=== PATIENT | female | born 1960 | race Caucasian/White ===

== ENCOUNTER 2017-01-23 12:30 | Emergency (ER) | payer BC ==
[2017-01-23 12:37] VITALS: BP 153/76; BMI 42.9
--- NOTE | 2017-01-24 10:32 | DR.DIARMA ---
HPI - PCP Primary Care Physician: TRU - Complaint Chief Complaint:: DIARRHEA FOR 4 DAYS,RASH ON ABDOMEN AND BACK Self Treatment fo Chief Complaint: CALAMINE LOTION, ANTIFUNGIAL CREAM, IMODIUM - Source History Provided: Patient - Mode of Arrival Mode of Arrival: Ambulatory - Timing Onset of Chief Complaint: 01/19/17 PMH - PMH Past Medical History: Yes Past Medical History: Asthma, Depression Past Surgical History: Yes Surgical History: Hysterectomy, Other Past Surgical History Comment: LIPOSUCTION - Family History History of Family Medical Conditions: Yes (UNKNOWN) Family Medical History Comment: FOSTER CHILD - Social History Does any household member use tobacco: No Alcohol Use: None Do you use any recreational Drugs:: No Lives With: Spouse Lives Where: Home - infectious screening In the last 2 months have you had wt loss of >10#?: NO Have you had fever, night sweats or hemotysis?: No Have you traveled outside the country in the last 6 months?: No Isolation: Standard PE - Vital Signs Vitals: Temperature 97.7 F Pulse Rate 75 Respiratory Rate 20 Blood Pressure 153/76 O2 Sat by Pulse Oximetry 98 - Discharge Plan Disposition: LWBS After Triage Condition: Stable - Follow ups/Referrals Follow ups/Referrals: ANNABEL OTT [Primary Care Provider] - 3 days - Instructions
== END 2017-01-23 14:20 | disposition left against medical advice (07) ==
LOC: ER 12:44
DX: R19.7 Diarrhea, unspecified (principal)
CPT/HCPCS: 99281; 99282

== ENCOUNTER 2021-01-04 13:07 | Observation (INO) ==
[2021-01-04 13:18] VITALS: BMI 36.8
--- NOTE | 2021-01-04 13:41 | DR.SOBA ---
HPI Time Seen Time Seen by Provider: 01/04/21 13:26 Primary Care Physician Primary Care Physician: FE SALAS Complaints Chief Complaint Doctors Comments: 60 y/o female presents for evaluation. Diagnosed with Covid about 3-4 weeks ago. Has had steadily worsening symptoms x 2 weeks. + dry cough, + dyspnea, worse with exertion. + h/o asthma/COPD. Was treated with azithromycin, albuterol inhaler/nebulizer. Denies any fever, though feels hot at times. Having chest pain, sternal region, sharp pain. Radiated to the back/abdomen at times. Pain worse with inspiration. Nothing makes it better. C/o weakness, aches, dyspnea which is worse on exertion. Was at another ER 2 days ago, d/c'd without any additional meds. Did not receive vaccines, + smokes. Chief Complaint:: PT. STATES SHE HAD COVID ABOUT 1 MONTH AGO. PT. HAS HAD SHORTNESS OF BREATH SINCE HAVING COVID BUT IT HAS WORSENED. PT. IS WINDED WHILE TALKING TO STAFF. PT. STATES SHE ACHES ALL OVER. NON PRODUCTIVE COUGH NOTED. PT. WAS SEEN IN [facility] ER 2 DAYS AGO FOR SOB. COVID-19 Coronavirus risk:travel/contact w/high risk person: No Has patient experienced Coronavirus symptoms: Yes Coronavirus symptoms experienced: Coughing and Shortness of Breath Source History Provided: Patient Mode of Arrival Mode of Arrival: Ambulatory Timing Onset of Chief Complaint: 12/05/20 PMH PMH Past Medical History: Yes Past Medical History: Asthma and Depression Past Surgical History: Yes Surgical History: Hysterectomy and Other Family History History of Family Medical Conditions: No Social History Does patient currently use any type of tobacco product: Yes Have you used tobacco products in the last 12 months: Yes Type of Tobacco Use: Cigarettes Does any household member use tobacco: Yes Alcohol Use: None Do you use any recreational Drugs:: No Lives With: Family Lives Where: Home Travel Risk Coronavirus risk:travel/contact w/high risk person: No Has patient experienced Coronavirus symptoms: Yes Coronavirus symptoms experienced: Coughing and Shortness of Breath Infectious screening In the last 2 months have you had wt loss of >10#?: NO Have you had fever, night sweats or hemotysis?: No Have you traveled outside the country in the last 6 months?: No Isolation: Droplet ROS Review of Systems Constitutional: Weakness and Fatigue Eyes: No Symptoms Reported ENTM: No Symptoms Reported Respiratoy: Productive Cough (white phlegm) and Short of Breath (worse on exertion) Cardiovascular: Chest Pain Gastrointestinal/Abdominal: No Symptoms Reported Genitourinary: No Symptoms Reported Neurological: No Symptoms Reported Musculoskeletal: Muscle Pain Integumentary: No Symptoms Reported Hematologic/Lymphatic: No Symptoms Reported Endocrine: No Symptoms Reported Psychiatric: No Symptoms Reported All Other Systems: Reviewed and Negative PE Vital Signs Vitals: Temperature 97.6 F Pulse Rate 77 Respiratory Rate 24 Blood Pressure 173/87 O2 Sat by Pulse Oximetry 93 General Limitations: No Limitations General Appearance: Alert, Anxious and In Distress (mild respiratory. Pulse ox 95% on RA.) Eyes Eye exam: Normal Appearance and PERRL ENT ENT Exam: Normal Exam and Mucous Membranes Moist Neck Neck Exam: Normal Inspection and Full ROM; negative Tenderness Chest Chest Inspection: Normal Inspection Respiratory Respiratory Exam: Respiratory Distress (mild); negative Accessory Muscle Use Respiratory Exam: Bilateral: Wheezing (faint expiratory) and Bilateral: Rhonchi Cardiovascular Cardiovascular Exam: Regular Rate, Normal Rhythm and Normal Heart Sounds Abdominal Exam Abdominal Exam: Normal Inspection and Normal Bowel Sounds; negative Tenderness Extremities Extremities Exam: Normal Inspection and Full ROM; negative Tenderness and Edema Back Back Exam: Normal Inspection and Full ROM Neurologic Neurological Exam: Alert, Oriented X3 and CN II-XII Intact; negative Motor Sensory Deficit Psychiatric Psychiatric Exam: Normal Affect Skin Skin Exam: Warm and Dry MDM Differential Diagnosis Differential Diagnosis: Asthma, Bronchitis, CHF, COPD, Pneumonia and Pulmonary embolism COURSE Treatment Treatment: 60 y/o female presents with dyspnea, + h/o asthma/COPD, had Covid last month. + worsening over the past 2 weeks. Pulse ox 95-96 %. + bilateral faint expiratory wheeze. Given IV solu-medrol. Covid negative. CXR with COPD changes. Does have elevated WBC, 17K, + elevated eosinophil %. Work up c/w exacerbation of asthma/COPD. Given duo-neb treatment. 1545 - pulse ox 94% at rest, drops to 90% with ambulation. Recommend observation admission for further treatment. Discussed with Dr Douglas, accepts an observation admission. ROR Labs Reviewed Result Diagrams: 01/04/21 13:36 01/04/21 13:36 Laboratory: WBC 17.4 X10^3/uL (3.6-10.0) H 01/04/21 13:36 RBC 5.46 X10^6/uL (3.5-5.4) H 01/04/21 13:36 Hgb 17.2 g/dL (12.0-16.0) H 01/04/21 13:36 Hct 50.4 % (36.0-47.0) H 01/04/21 13:36 MCV 92.2 fL (80.0-100.0) 01/04/21 13:36 MCH 31.4 pg (27.0-34.0) 01/04/21 13:36 MCHC 34.1 g/dL (33.0-35.0) 01/04/21 13:36 RDW 13.3 % (11.6-16.5) 01/04/21 13:36 Plt Count 347 X10^3/uL (150.0-450.0) 01/04/21 13:36 Plt Count Comment Adequate (ADEQUATE) 01/04/21 13:36 MPV 8.2 fL (7.4-11.0) 01/04/21 13:36 Neut % (Auto) 70.7 % (42.0-75.0) 01/04/21 13:36 Lymph % (Auto) 10.6 % (21.0-51.0) L 01/04/21 13:36 [place] % (Auto) 6.1 % (0.0-13.0) 01/04/21 13:36 Eos % (Auto) 10.3 % (0.9-2.9) H 01/04/21 13:36 Baso % (Auto) 2.3 % (0.2-1.0) H 01/04/21 13:36 Neut # (Auto) 12.3 x10^3/uL (2.2-4.8) H 01/04/21 13:36 Lymph # (Auto) 1.8 X10^3/uL (1.3-2.9) 01/04/21 13:36 [place] # (Auto) 1.1 x10^3/uL (0.3-0.8) H 01/04/21 13:36 Eos # (Auto) 1.8 x10^3/uL (0.0-0.2) H 01/04/21 13:36 Baso # (Auto) 0.4 X10^3/uL (0.0-0.1) H 01/04/21 13:36 Absolute Nucleated RBC 0.0 /100WBC 01/04/21 13:36 Total Counted 100 01/04/21 13:36 Neutrophils % (Manual) 70 % (39-76) 01/04/21 13:36 Lymphocytes % (Manual) 15 % (13-43) 01/04/21 13:36 Monocytes % (Manual) 4 % (4-9) 01/04/21 13:36 Eosinophils % (Manual) 9 % (0-6) H 01/04/21 13:36 Basophils % (Manual) 2 % (0-1) H 01/04/21 13:36 Plt Morphology Comment Normal (NORMAL) 01/04/21 13:36 RBC Morphology Abnormal (NORMAL) A 01/04/21 13:36 Stomatocytes Present 01/04/21 13:36 D-Dimer 0.37 ug/ml (0.0-0.57) 01/04/21 13:36 Sodium 136 mmol/L (136-145) 01/04/21 13:36 Corrected Sodium 138 mmol/L (136-145) 01/04/21 13:36 Potassium 4.1 mmol/L (3.5-5.1) 01/04/21 13:36 Chloride 101 mmol/L (98-107) 01/04/21 13:36 Carbon Dioxide 26.4 mmol/L (21-32) 01/04/21 13:36 BUN 9 mg/dL (7-18) 01/04/21 13:36 Creatinine 0.73 mg/dL (0.55-1.02) 01/04/21 13:36 Est GFR (MDRD) Af Amer > 60 (>60) 01/04/21 13:36 Est GFR (MDRD) Non-Af > 60 (>60) 01/04/21 13:36 Glucose 173 mg/dL (65-99) H 01/04/21 13:36 Lactic Acid 1.5 mmol/L (0.4-2.0) 01/04/21 13:36 Calcium 9.6 mg/dL (8.5-10.1) 01/04/21 13:36 Corrected Calcium TNP 01/04/21 13:36 Total Bilirubin 0.40 mg/dL (0.2-1.0) 01/04/21 13:36 AST 26 Units/L (15-37) 01/04/21 13:36 ALT 23 Units/L (12-78) 01/04/21 13:36 Alkaline Phosphatase 111 Units/L (46-116) 01/04/21 13:36 Creatine Kinase 117 Units/L (26-192) 01/04/21 13:36 CK-MB (CK-2) 2.4 ng/mL (0-4.0) 01/04/21 13:36 CK/CKMB % Calc 2.1 % (<4) 01/04/21 13:36 Troponin I < 0.02 ng/mL (0-1.5) 01/04/21 13:36 B-Natriuretic Peptide 33.3 pg/mL (0-79) 01/04/21 13:36 Total Protein 8.2 g/dL (6.4-8.2) 01/04/21 13:36 Albumin 3.6 g/dL (3.4-5.0) 01/04/21 13:36 Globulin 4.6 g/dL (2.5-4.5) H 01/04/21 13:36 Albumin/Globulin Ratio 0.8 Ratio (1.1-2.1) L 01/04/21 13:36 SARS-CoV-2 (PCR) Negative (NEGATIVE) 01/04/21 13:35 Influenza Type A (PCR) Negative (NEGATIVE) 01/04/21 13:35 Influenza Type B (PCR) Negative (NEGATIVE) 01/04/21 13:35 RSV (PCR) Negative (NEGATIVE) 01/04/21 13:35 EKG Rate: 87 [place]: LAD (-52) Rhythm: NSR Block: RBBB (incomplete RBBB and LAFB) Hypertrophy: None ST: Nonsp Opioid Opioid Risk Tool Age (Jose box if 16-45): No History of Preadolescent Sexual Abuse: No Total: 0 Total Score Risk Category: Low Risk Copyright: Joseph predicting aberrant behaviors Diagnosis Discharge Problem: COPD with acute exacerbation
[2021-01-04] MEDS ORDERED: SOLU-Medrol 125 MG VIAL IVP ONE (13:50)
[2021-01-04 13:51] LABS: BASOPHILS # (AUTO) 0.4 X10^3/uL (0.0-0.1); BASOPHILS % (AUTO) 2.3 % (0.2-1.0); EOSINOPHILS # (AUTO) 1.8 x10^3/uL (0.0-0.2); EOSINOPHILS % (AUTO) 10.3 % (0.9-2.9); HEMATOCRIT 50.4 % (36.0-47.0); HEMOGLOBIN 17.2 g/dL (12.0-16.0); LYMPHOCYTES # (AUTO) 1.8 X10^3/uL (1.3-2.9); LYMPHOCYTES % (AUTO) 10.6 % (21.0-51.0); MEAN CORPUSCULAR HEMOGLOBIN 31.4 pg (27.0-34.0); MEAN CORPUSCULAR HGB CONC 34.1 g/dL (33.0-35.0); MEAN CORPUSCULAR VOLUME 92.2 fL (80.0-100.0); MEAN PLATELET VOLUME 8.2 fL (7.4-11.0); MONOCYTES # (AUTO) 1.1 x10^3/uL (0.3-0.8); MONOCYTES % (AUTO) 6.1 % (0.0-13.0); NEUTROPHILS # (AUTO) 12.3 x10^3/uL (2.2-4.8); NEUTROPHILS % (AUTO) 70.7 % (42.0-75.0); PLATELET COUNT 347 X10^3/uL (150.0-450.0); RED BLOOD COUNT 5.46 X10^6/uL (3.5-5.4); RED CELL DISTRIBUTION WIDTH 13.3 % (11.6-16.5); WHITE BLOOD COUNT 17.4 X10^3/uL (3.6-10.0)
[2021-01-04] MEDS ORDERED: SOLU-Medrol 125 MG VIAL ONE (13:53)
[2021-01-04 14:04] LABS: LACTIC ACID 1.5 mmol/L (0.4-2.0)
[2021-01-04 14:10] LABS: ALANINE AMINOTRANSFERASE 23 Units/L (12-78); ALBUMIN 3.6 g/dL (3.4-5.0); ALKALINE PHOSPHATASE 111 Units/L (46-116); ASPARTATE AMINO TRANSFERASE 26 Units/L (15-37); BLOOD UREA NITROGEN 9 mg/dL (7-18); CALCIUM 9.6 mg/dL (8.5-10.1); CARBON DIOXIDE 26.4 mmol/L (21-32); CHLORIDE 101 mmol/L (98-107); CKMB % 2.1 % (<4); COR NA(FOR HYPERGLY) 138 mmol/L (136-145); CREATINE KINASE 117 Units/L (26-192); CREATINE KINASE MB 2.4 ng/mL (0-4.0); CREATININE 0.73 mg/dL (0.55-1.02); SODIUM 136 mmol/L (136-145); TOTAL PROTEIN 8.2 g/dL (6.4-8.2); TROPONIN I < 0.02 ng/mL (0-1.5); eGFR NON BLACK RACES > 60 (>60)
[2021-01-04 14:13] LABS: BASOPHILS % (MANUAL) 2 % (0-1); PLATELET MORPHOLOGY COMMENT NORMAL (NORMAL); STOMATOCYTES PRESENT
[2021-01-04] MEDS: DUONEB 0.5 MG/3 MG (3 mL) NEB ONE (14:50)
[2021-01-04] MEDS ORDERED: DUONEB 0.5 MG/3 MG (3 mL) NEB ONE (14:57)
--- NOTE | 2021-01-04 16:02 | RAD ---
HISTORYshortnes of breathSTUDYCHEST, 1 VIEWCOMPARISONNoneTECHNIQUEChest x-ray single viewFINDINGSLungs are hyperinflated with flattened diaphragms. No organized infiltrates or pleural fluid collections. Heart size is upper limits of normal. There is no mediastinal widening observed. No free air or pneumothorax.IMPRESSIONRadiographic features of chronic obstructive pulmonary disease with no organized pulmonary infiltrates.Electronically signed by: CRISTIAN WILLIAM (Jan 04, 2021 16:00:01)
[2021-01-04] MEDS: DUONEB 0.5 MG/3 MG (3 mL) NEB SCH (17:15)
[2021-01-04] MEDS ORDERED: TYLENOL 325 MG TAB PO ONE (19:08)
[2021-01-04] MEDS ORDERED: NS 1000 ML 1,000 ML ONE (19:08)
[2021-01-04] MEDS: TYLENOL 325 MG TAB PO PRN (19:10)
[2021-01-04] MEDS: NS 1000 ML 1,000 ML IV SCH (19:10)
[2021-01-04] MEDS ORDERED: VIBRAMYCIN PO ONE (19:17)
[2021-01-04] MEDS ORDERED: SINGULAIR TAB 10 MG ONE (19:17)
[2021-01-04] MEDS ORDERED: ZOLOFT PO ONE (19:18)
[2021-01-04] MEDS ORDERED: SOLU-Medrol 40 MG VIAL ONE (19:18)
[2021-01-04] MEDS: ZOLOFT PO SCH (20:29)
[2021-01-04] MEDS: SINGULAIR TAB 10 MG PO SCH (20:29)
[2021-01-04] MEDS: VIBRAMYCIN PO SCH (20:29)
[2021-01-04] MEDS: PULMICORT NEB TX 0.5 MG NEB SCH (21:21)
[2021-01-04] MEDS: SOLU-Medrol 40 MG VIAL IVP SCH (21:33)
[2021-01-04] MEDS ORDERED: APRESOLINE INJ 20 MG VIAL IVP ONE (23:57)
[2021-01-04] MEDS ORDERED: APRESOLINE INJ 20 MG VIAL ONE (23:58)
[2021-01-05] MEDS ORDERED: TYLENOL 325 MG TAB PO ONE ×2 (01:08→06:06)
[2021-01-05] MEDS: TYLENOL 325 MG TAB PO PRN ×2 (01:10→06:07)
[2021-01-05] MEDS ORDERED: APRESOLINE INJ 20 MG VIAL IVP ONE (04:42)
[2021-01-05] MEDS ORDERED: APRESOLINE INJ 20 MG VIAL ONE (04:43)
[2021-01-05] MEDS ORDERED: NS 1000 ML 1,000 ML ONE (04:48)
[2021-01-05] MEDS ORDERED: ZOFRAN INJ 4 MG VIAL IVP ONE (04:52)
[2021-01-05] MEDS ORDERED: ZOFRAN INJ 4 MG VIAL ONE (04:53)
[2021-01-05] MEDS ORDERED: SOLU-Medrol 40 MG VIAL ONE ×2 (05:07→15:47)
[2021-01-05] MEDS: NS 1000 ML 1,000 ML IV SCH ×2 (05:07→18:12)
[2021-01-05] MEDS: SOLU-Medrol 40 MG VIAL IVP SCH ×3 (05:21→21:16)
[2021-01-05] MEDS: DUONEB 0.5 MG/3 MG (3 mL) NEB SCH ×4 (05:50→17:00)
--- NOTE | 2021-01-05 06:06 | RAD ---
HISTORYDYSPNEA Relevant Clinical InformationSTUDYCHEST, 1 [id number]/26/2021FINDINGSThe trachea is midline. The cardiac silhouette is unremarkable. The lungs are clear without focal infiltrate or effusion. Pulmonary vasculature within normal limits. No pneumothorax. The bony thorax is unremarkable.IMPRESSIONNo acute cardiopulmonary disease.Electronically signed by: Judd Garcia (Jan 05, 2021 06:04:36)
[2021-01-05 06:28] LABS: BASOPHILS % (AUTO) 0.2 % (0.2-1.0); EOSINOPHILS % (AUTO) 0.1 % (0.9-2.9); HEMATOCRIT 50.5 % (36.0-47.0); HEMOGLOBIN 17.3 g/dL (12.0-16.0); LYMPHOCYTES # (AUTO) 1.7 X10^3/uL (1.3-2.9); MEAN CORPUSCULAR HEMOGLOBIN 31.3 pg (27.0-34.0); MEAN CORPUSCULAR HGB CONC 34.2 g/dL (33.0-35.0); MEAN CORPUSCULAR VOLUME 91.7 fL (80.0-100.0); MEAN PLATELET VOLUME 8.7 fL (7.4-11.0); MONOCYTES # (AUTO) 0.6 x10^3/uL (0.3-0.8); MONOCYTES % (AUTO) 3.2 % (0.0-13.0); NEUTROPHILS # (AUTO) 16.4 x10^3/uL (2.2-4.8); NEUTROPHILS % (AUTO) 87.5 % (42.0-75.0); PLATELET COUNT 353 X10^3/uL (150.0-450.0); RED CELL DISTRIBUTION WIDTH 13.3 % (11.6-16.5); WHITE BLOOD COUNT 18.8 X10^3/uL (3.6-10.0)
[2021-01-05 06:53] LABS: ALANINE AMINOTRANSFERASE 21 Units/L (12-78); ALBUMIN 3.5 g/dL (3.4-5.0); ALKALINE PHOSPHATASE 114 Units/L (46-116); ASPARTATE AMINO TRANSFERASE 14 Units/L (15-37); BLOOD UREA NITROGEN 17 mg/dL (7-18); CALCIUM 9.6 mg/dL (8.5-10.1); CARBON DIOXIDE 20.6 mmol/L (21-32); CHLORIDE 103 mmol/L (98-107); COR NA(FOR HYPERGLY) 139 mmol/L (136-145); CREATININE 0.63 mg/dL (0.55-1.02); SODIUM 138 mmol/L (136-145); TOTAL PROTEIN 7.9 g/dL (6.4-8.2); eGFR NON BLACK RACES > 60 (>60)
[2021-01-05] MEDS ORDERED: PULMICORT NEB TX 0.5 MG NEB ONE (08:34)
[2021-01-05] MEDS: PULMICORT NEB TX 0.5 MG NEB SCH ×2 (08:45→21:22)
[2021-01-05 08:58] LABS: ABG ALLEN TEST POS; ABG BASE EXCESS -0.7 mmol/L (-2.0-2.0); ABG HCO3 23.4 mmol/L (22-26)
[2021-01-05] MEDS ORDERED: VIBRAMYCIN PO ONE (10:00)
[2021-01-05] MEDS ORDERED: LEVAQUIN PREMIX IV 500 MG 500 MG/100 ML BAG IV ONE (10:00)
[2021-01-05] MEDS ORDERED: PROTONIX INJ 40 MG VIAL ONE (10:00)
[2021-01-05] MEDS: VIBRAMYCIN PO SCH (10:05)
[2021-01-05] MEDS: PROTONIX INJ 40 MG VIAL IVP SCH (10:06)
[2021-01-05] MEDS: TOPROL XL PO SCH (10:06)
[2021-01-05] MEDS: LEVAQUIN PREMIX IV 500 MG 500 MG/100 ML BAG IV SCH (10:06)
--- NOTE | 2021-01-05 10:51 | DR.H&P ---
H&P - History & Physical for Day of: H&P Date: 01/04/21 - Chief Complaint Chief Complaint: SHORT OF BREATH, COUGH, HEADACHE, WEAKNESS - History of Present Illness History of Present Illness: IS A 60 YEAR OLD PATIENT OF Juan SALAS NP. SHE PRESENTED TO THE ER WITH COMPLAINTS OF SHORTNESS OF BREATH, NON- PRODUCTIVE COUGH, HEADACHE, AND GENERALIZED BODY ACHES. PATIENT ADMITS TO BEING DIAGNOSED WITH COVID ABOUT A MONTH AGO. SYMPTOMS HAVE PROGRESSIVELY WORSENED OVER THE PAST TWO WEEKS. DYSPNEA IS WORSE WITH EXERTION. SHE ADMITS TO CHEST PAIN. IT IS DESCRIBED SHARP, INTERMITTENT, AND RADIATES TO THE BACK AT TIMES. PAIN IS WORSE WITH INSPIRATION. SHE CURRENTLY RATES IT A 4/10. SHE HAS A PMH OF ASTHMA, COPD, DEPRESSION, AND HYSTERECTOMY. SHE IS A DAILY SMOKER. HER OXYGEN SATURATIONS ON ARRIVAL TO THE HOSPITAL WERE 90% ON ROOM AIR. SHE WAS PLACED ON OXYGEN VIA NASAL CANNULA AT 2 LITERS/MINUTE. SATURATIONS INCREASED TO 93-94% ON 2 LITERS. ON ARRIVAL, VITALS WERE 97.6-93-24-90%-172/93. LABS WERE OBTAINED. ABNORMAL LAB VALUES INCLUDE THE FOLLOWING: WBC 17.4, RBC 5.46, HGB 17.2, HCT 50.4, GLUCOSE 173, GLOBULIN 4.6. COVID, RSV, AND INFLUENZA NEGATIVE. AN ABG WAS OBTAINED AND REVEALED: PH 7.420, PC02 36, P02 64, HC03 23.4, 02 SAT 93, A-A GRADIENT 41, FI02 21.0. BLOOD CULTURES WERE SET UP. A CHEST XRAY WAS OBTAINED AND REVEALED: Radiographic features of chronic obstructive pulmonary disease with no organized pulmonary infiltrates. EKG REVEALED: SINUS RHYTHM WITH HR 87. IN THE ER, SHE WAS GIVEN SOLU-MEDROL 125MG IV X 1, DUONEB X 1. SHE DENIED SIGNIFICANT IMPROVEMENT IN SYMPTOMS. SHE WAS ADMITTED TO THE HOSPITAL FOR FUR THER EVALUATION AND TREATMENT OF EXACERBATION OF COPD. SHE WAS STARTED ON NORMAL SALINE AT 80 ML/HR, DUONEBS Q6H, PUMICORT NEBS BID, LEVAQUIN 500MG IV DAILY, SOLU-MEDROL 80MG IV Q8H, SINGULAIR 10MG PO HS, ZOLOFT 50MG PO HS, PROTONIX 40MG IV DAILY, FIORICET 2 TABS PO Q8H PRN, TESSALON PERLES 200MG PO TID, AND TOPROL XL 25MG PO DAILY. OTHERWISE, WE PLAN TO FOLLOW UP WITH AM LABS, CHEST XRAY, AND CONTINUE TO MONITOR. TIME SPENT ON CLINICAL ASSESSMENT, REVIEWING LABS AND IMAGING, DECISION MAKING, AND DOCUMENTATION GREATER THAN 75 MINUTES. - Past Medical History Past Medical History: Asthma, COPD, Depression - Past Surgical History Surgical History: , Hysterectomy, Ortho Surgery - Family History Family Medical History: Diabetes Mellitus, Cancer - Social History Does patient currently use any type of tobacco product: No (NOT SMOKED IN 2 WEEKS) Have you used tobacco products in the last 12 months: Yes Type of Tobacco Use: Cigarettes Does any household member use tobacco: Yes Alcohol Use: None Drug Use: None - Medications Home Medications: guaifenesin [From Quibron] Adverse Reaction (Verified 01/04/21 13:18) theophylline [From Quibron] Adverse Reaction (Verified 01/04/21 13:18) CONTINUE taking the following medications albuterol sulfate 1 - 2 puff INHALATION Q4HR PRN 01/04/21 [History] dexlansoprazole [Dexilant] 60 mg PO DAILY 01/04/21 [History] dextroamphetamine-amphetamine 1 tab PO BID 01/04/21 [History] meloxicam 15 mg PO DAILY 01/04/21 [History] montelukast 10 mg PO HS 01/04/21 [History] sertraline 50 mg PO HS 01/04/21 [History] - Review of Systems Constitutional: See HPI, Weakness. denies: Fever Eyes: No Symptoms Reported ENT: No Symptoms Reported Respiratory: See HPI, Cough, Shortness of Breath, SOB with Excertion Cardiovascular: No Symptoms Reported Gastrointestinal: No Symptoms Reported Genitourinary: No Symptoms Reported Musculoskeletal: No Symptoms Reported Skin: No Symptoms Reported Neurological: See HPI, Weakness - Physical Exam Vital Signs: Temperature 97.7 F Pulse Rate [Left Brachial] 107 Pulse Rate 90 Respiratory Rate 18 Blood Pressure [Left Arm] 206/93 Blood Pressure 173/87 O2 Sat by Pulse Oximetry 98 Oriented: Normal Eyes: Normal Ear: Normal Nose: Normal Throat: Normal Respiratory: Diminished Throughout Cardiovascular: Normal : Normal Auscultation: Bowel Sounds: Normal Palpation: Normal Tenderness: Normal Skin: Normal Musculoskeletal: Normal Psychiatric: Normal Mood Description: Calm Affect: Normal Speech Pattern: Clear - Assessment/Plan (1) COPD with acute exacerbation Status: Acute Plan: ADMIT, SUPPLEMENTAL OXYGEN, NORMAL SALINE AT 80 ML/HR, DUONEBS Q6H, PUMICORT NEBS BID, LEVAQUIN 500MG IV DAILY, SOLU-MEDROL 80MG IV Q8H, SINGULAIR 10MG PO HS, ZOLOFT 50MG PO HS, PROTONIX 40MG IV DAILY, FIORICET 2 TABS PO Q8H PRN, TESSALON PERLES 200MG PO TID, AND TOPROL XL 25MG PO DAILY. (2) Hypertension Qualifiers: Hypertension type: unspecified Qualified Code(s): I10 - Essential (primary) hypertension Status: Acute (3) Post-COVID syndrome Status: Acute - Allergies Allergies/Adverse Reactions: Allergies Allergy/AdvReac Type Severity Reaction Status Date / Time guaifenesin [From Quibron] AdvReac Verified 01/04/21 13:18 theophylline [From Quibron] AdvReac Verified 01/04/21 13:18
[2021-01-05] MEDS ORDERED: FIORICET TAB PO ONE ×3 (11:52→21:10)
[2021-01-05] MEDS ORDERED: TESSALON PERLES PO ONE (11:52)
[2021-01-05] MEDS: FIORICET TAB PO PRN ×3 (11:56→21:18)
[2021-01-05] MEDS: TESSALON PERLES PO SCH ×3 (11:56→21:15)
[2021-01-05] MEDS ORDERED: DUONEB 0.5 MG/3 MG (3 mL) NEB ONE (13:24)
[2021-01-05 17:52] LABS: BILIRUBIN,URINE NEGATIVE (NEGATIVE); BLOOD/HEMOGLOBIN,URINE 1+ (NEGATIVE); GLUCOSE, URINE 1+ (NEGATIVE); KETONES,URINE NEGATIVE (NEGATIVE); LEUKOCYTE ESTERASE ,URINE NEGATIVE (NEGATIVE); NITRITES,URINE NEGATIVE (NEGATIVE); PROTEIN,URINE 2+ (NEGATIVE); UROBILINOGEN,URINE NORMAL (NORMAL)
[2021-01-05 18:26] LABS: APPEARANCE,URINE CLEAR (CLEAR); COLOR,URINE YELLOW (YELLOW)
[2021-01-05 18:27] LABS: RBC,URINE 0-2 /HPF (0-3); SQUAMOUS EPITHELIAL CELL,UR MODERATE /HPF (NEGATIVE)
[2021-01-05 18:28] LABS: BACTERIA,URINE 1+ /HPF (NEGATIVE)
[2021-01-05] MEDS ORDERED: TUSSIONEX PENNKINETIC SUSP ONE (18:29)
[2021-01-05] MEDS: TUSSIONEX PENNKINETIC SUSP PO PRN (18:33)
[2021-01-05] MEDS: SINGULAIR TAB 10 MG PO SCH (21:12)
[2021-01-05] MEDS: ZOLOFT PO SCH (21:20)
[2021-01-06] MEDS: SOLU-Medrol 40 MG VIAL IVP SCH ×3 (05:11→22:09)
[2021-01-06] MEDS: TESSALON PERLES PO SCH ×3 (05:11→22:00)
[2021-01-06] MEDS: DUONEB 0.5 MG/3 MG (3 mL) NEB SCH ×2 (06:00→06:26)
[2021-01-06 06:42] LABS: BASOPHILS # (AUTO) 0.1 X10^3/uL (0.0-0.1); BASOPHILS % (AUTO) 0.2 % (0.2-1.0); HEMOGLOBIN 15.5 g/dL (12.0-16.0); LYMPHOCYTES # (AUTO) 2.1 X10^3/uL (1.3-2.9); LYMPHOCYTES % (AUTO) 7.6 % (21.0-51.0); MEAN CORPUSCULAR HEMOGLOBIN 31.2 pg (27.0-34.0); MEAN CORPUSCULAR HGB CONC 33.7 g/dL (33.0-35.0); MEAN CORPUSCULAR VOLUME 92.5 fL (80.0-100.0); MEAN PLATELET VOLUME 8.9 fL (7.4-11.0); MONOCYTES # (AUTO) 1.9 x10^3/uL (0.3-0.8); MONOCYTES % (AUTO) 6.7 % (0.0-13.0); NEUTROPHILS # (AUTO) 23.9 x10^3/uL (2.2-4.8); NEUTROPHILS % (AUTO) 85.5 % (42.0-75.0); PLATELET COUNT 330 X10^3/uL (150.0-450.0); RED BLOOD COUNT 4.98 X10^6/uL (3.5-5.4); RED CELL DISTRIBUTION WIDTH 13.5 % (11.6-16.5); WHITE BLOOD COUNT 27.9 X10^3/uL (3.6-10.0)
[2021-01-06 06:59] LABS: ALANINE AMINOTRANSFERASE 19 Units/L (12-78); ALBUMIN 3.3 g/dL (3.4-5.0); ALKALINE PHOSPHATASE 90 Units/L (46-116); ASPARTATE AMINO TRANSFERASE 14 Units/L (15-37); BLOOD UREA NITROGEN 15 mg/dL (7-18); CALCIUM 9.3 mg/dL (8.5-10.1); CARBON DIOXIDE 22.9 mmol/L (21-32); CHLORIDE 105 mmol/L (98-107); COR CA(FOR HYPOALB) 9.9 mg/dL (8.5-10.1); COR NA(FOR HYPERGLY) 140 mmol/L (136-145); CREATININE 0.57 mg/dL (0.55-1.02); SODIUM 139 mmol/L (136-145); TOTAL PROTEIN 7.1 g/dL (6.4-8.2); eGFR NON BLACK RACES > 60 (>60)
--- NOTE | 2021-01-06 07:18 | RAD ---
HISTORYSOBSTUDYCHEST, 1 VIEWCOMPARISONOne day prior.TECHNIQUEAP view of the chestFINDINGSCardiac and mediastinal contours are within normal limits. Lungs appear hyperexpanded. No consolidation or segmental lung collapse. No definite pleural effusion or pneumothorax. Soft tissue attenuation limits evaluation.IMPRESSIONHyperexpanded lungs suggest COPD.Electronically signed by: Dave Contreras (Jan 06, 2021 07:16:01)
[2021-01-06 07:31] LABS: BAND NEUTROPHILS % 2 % (0-10); PLATELET MORPHOLOGY COMMENT NORMAL (NORMAL); STOMATOCYTES PRESENT
[2021-01-06] MEDS: NS 1000 ML 1,000 ML IV SCH ×2 (07:45→08:23)
[2021-01-06] MEDS: LEVAQUIN PREMIX IV 500 MG 500 MG/100 ML BAG IV SCH (08:21)
[2021-01-06] MEDS: PROTONIX INJ 40 MG VIAL IVP SCH (08:22)
[2021-01-06] MEDS: TOPROL XL PO SCH (08:23)
[2021-01-06] MEDS: PULMICORT NEB TX 0.5 MG NEB SCH ×2 (10:26→21:25)
[2021-01-06] MEDS: NORVASC TAB 5 MG PO SCH (12:07)
[2021-01-06] MEDS ORDERED: TUSSIONEX PENNKINETIC SUSP ONE (12:12)
[2021-01-06] MEDS: TUSSIONEX PENNKINETIC SUSP PO PRN ×2 (12:16→12:19)
--- NOTE | 2021-01-06 13:01 | PCM.PROG ---
Progress Note - Progress Note for Day of Date of Exam: 01/06/21 - Subjective Subjective: WAS ADMITTED FOR TREATMENT OF COPD EXACERBATION AND HYPERTENSION. SHE HAD COVID ABOUT A MONTH AGO AND REPORTS TO PERSISTENT SHORTNESS OF BREATH SINCE THEN. SHE CONTINUES WITH SHORTNESS OF BREATH TODAY, BUT DOES ADMIT TO SLIGHT IMPROVEMENT IN SYMPTOMS SINCE ADMISSION. ON EXAMINATION, HEART IS REGULAR IN RATE AND RHYTHM. BILATERAL LUNGS ARE NOTED TO HAVE DIMINISHED LUNG SOUNDS THROUGHOUT. ABDOMEN IS ROUND, SOFT, AND NON-TENDER WITH NORMAL BOWEL SOUNDS NOTED IN ALL QUADRANTS. HER VITALS THIS MORNING ARE: 98.9-93-20-96%RA-176/89. LABS WERE OBTAINED. ABNORMAL LAB VALUES INCLUDE THE FOLLOWING: WBC 27.9, GLUCOSE 131, AST 14, ALBUMIN 3.3. BLOOD CULTURES ARE PENDING. A CHEST XRAY WAS OBTAINED THIS MORNING AND REVEALED: Hyperexpanded lungs suggest COPD. SHE IS CURRENTLY RECEIVING NORMAL SALINE AT 80 ML/HR, DUONEBS Q6H, PUMICORT NEBS BID, LEVAQUIN 500MG IV DAILY, SOLU-MEDROL 80MG IV Q8H, SINGULAIR 10MG PO HS, ZOLOFT 50MG PO HS, PROTONIX 40MG IV DAILY, FIORICET 2 TABS PO Q8H PRN, TESSALON PERLES 200MG PO TID, AND TOPROL XL 25MG PO DAILY. TODAY, WE WILL DISCONTINUE THE TOPROL AND ADD NORVASC 5MG PO DAILY. OTHERWISE, WE WILL CONTINUE WITH CURRENT PLAN OF CARE TODAY. WE WILL FOLLOW UP WITH AM LABS AND CHEST XRAY AND CONTINUE TO MONITOR. TIME SPENT ON CLINICAL ASSESSMENT, REVIEWING LABS AND IMAGING, DECISION MAKING, AND DOCUMENTATION GREATER THAN 45 MINUTES. - Past Medical Family Social History Past Med/Fam/Surg Hx: No changes since H&P Allergies: Allergies guaifenesin [From Quibron] Adverse Reaction (Verified 01/04/21 13:18) theophylline [From Quibron] Adverse Reaction (Verified 01/04/21 13:18) - Review of Systems ROS: No change since H&P - Vital Signs and I&O's Vital Signs: Temperature 97.6 F Pulse Rate [Left Brachial] 85 Pulse Rate 96 Respiratory Rate 22 Blood Pressure [Left Arm] 169/81 Blood Pressure 173/87 O2 Sat by Pulse Oximetry 96 Intake and Output: Intake & Output 09/2601/05/21 01/06/21 01/07/21 11:59 11:59 11:59 11:59 Intake Total 1812 3409 / 3409 Balance 1812 3409 / 3409 - Physical Exam Oriented: Normal Eyes: Normal Ear: Normal Nose: Normal Throat: Normal Cardiovascular: Normal : Normal Auscultation: Bowel Sounds: Normal Palpation: Normal Tenderness: Normal Skin: Normal Musculoskeletal: Normal Psychiatric: Normal Mood Description: Calm Affect: Normal Speech Pattern: Clear, Appropriate - Laboratory and Diagnostics Result Diagrams: 01/06/21 06:02 01/06/21 06:02 Labs: Laboratory WBC 27.9 X10^3/uL (3.6-10.0) H D 01/06/21 06:02 RBC 4.98 X10^6/uL (3.5-5.4) 01/06/21 06:02 Hgb 15.5 g/dL (12.0-16.0) 01/06/21 06:02 Hct 46.0 % (36.0-47.0) 01/06/21 06:02 MCV 92.5 fL (80.0-100.0) 01/06/21 06:02 MCH 31.2 pg (27.0-34.0) 01/06/21 06:02 MCHC 33.7 g/dL (33.0-35.0) 01/06/21 06:02 RDW 13.5 % (11.6-16.5) 01/06/21 06:02 Plt Count 330 X10^3/uL (150.0-450.0) 01/06/21 06:02 Plt Count Comment Adequate (ADEQUATE) 01/06/21 06:02 MPV 8.9 fL (7.4-11.0) 01/06/21 06:02 Neut % (Auto) 85.5 % (42.0-75.0) H 01/06/21 06:02 Lymph % (Auto) 7.6 % (21.0-51.0) L 01/06/21 06:02 [place] % (Auto) 6.7 % (0.0-13.0) 01/06/21 06:02 Eos % (Auto) 0.0 % (0.9-2.9) L 01/06/21 06:02 Baso % (Auto) 0.2 % (0.2-1.0) 01/06/21 06:02 Neut # (Auto) 23.9 x10^3/uL (2.2-4.8) H 01/06/21 06:02 Lymph # (Auto) 2.1 X10^3/uL (1.3-2.9) 01/06/21 06:02 [place] # (Auto) 1.9 x10^3/uL (0.3-0.8) H 01/06/21 06:02 Eos # (Auto) 0.0 x10^3/uL (0.0-0.2) 01/06/21 06:02 Baso # (Auto) 0.1 X10^3/uL (0.0-0.1) 01/06/21 06:02 Absolute Nucleated RBC 0.1 /100WBC 01/06/21 06:02 Total Counted 100 01/06/21 06:02 Neutrophils % (Manual) 80 % (39-76) H 01/06/21 06:02 Band Neutrophils % 2 % (0-10) 01/06/21 06:02 Lymphocytes % (Manual) 14 % (13-43) 01/06/21 06:02 Monocytes % (Manual) 4 % (4-9) 01/06/21 06:02 Eosinophils % (Manual) 9 % (0-6) H 01/04/21 13:36 Basophils % (Manual) 2 % (0-1) H 01/04/21 13:36 Plt Morphology Comment Normal (NORMAL) 01/06/21 06:02 RBC Morphology Abnormal (NORMAL) A 01/06/21 06:02 Stomatocytes Present 01/06/21 06:02 D-Dimer 0.37 ug/ml (0.0-0.57) 01/04/21 13:36 Sample Site Lr 01/05/21 08:53 ABG pH 7.420 (7.35-7.45) 01/05/21 08:53 ABG pCO2 36.0 mmHg (35.0-45.0) 01/05/21 08:53 ABG pO2 64.0 mmHg (80.0-100.0) L 01/05/21 08:53 ABG HCO3 23.4 mmol/L (22-26) 01/05/21 08:53 ABG O2 Saturation 93.0 % (90-100) 01/05/21 08:53 ABG Base Excess -0.7 mmol/L (-2.0-2.0) 01/05/21 08:53 Apolinar Test Pos 01/05/21 08:53 A-a Gradient 41.0 mmHg 01/05/21 08:53 FiO2 21.0 01/05/21 08:53 Blood Gas Comments Teri well cb 01/05/21 08:53 Sodium 139 mmol/L (136-145) 01/06/21 06:02 Corrected Sodium 140 mmol/L (136-145) 01/06/21 06:02 Potassium 4.0 mmol/L (3.5-5.1) 01/06/21 06:02 Chloride 105 mmol/L (98-107) 01/06/21 06:02 Carbon Dioxide 22.9 mmol/L (21-32) 01/06/21 06:02 BUN 15 mg/dL (7-18) 01/06/21 06:02 Creatinine 0.57 mg/dL (0.55-1.02) 01/06/21 06:02 Est GFR (MDRD) Af Amer > 60 (>60) 01/06/21 06:02 Est GFR (MDRD) Non-Af > 60 (>60) 01/06/21 06:02 Glucose 131 mg/dL (65-99) H 01/06/21 06:02 Lactic Acid 1.5 mmol/L (0.4-2.0) 01/04/21 13:36 Calcium 9.3 mg/dL (8.5-10.1) 01/06/21 06:02 Corrected Calcium 9.9 mg/dL (8.5-10.1) 01/06/21 06:02 Total Bilirubin 0.20 mg/dL (0.2-1.0) 01/06/21 06:02 AST 14 Units/L (15-37) L 01/06/21 06:02 ALT 19 Units/L (12-78) 01/06/21 06:02 Alkaline Phosphatase 90 Units/L (46-116) 01/06/21 06:02 Creatine Kinase 117 Units/L (26-192) 01/04/21 13:36 CK-MB (CK-2) 2.4 ng/mL (0-4.0) 01/04/21 13:36 CK/CKMB % Calc 2.1 % (<4) 01/04/21 13:36 Troponin I < 0.02 ng/mL (0-1.5) 01/04/21 13:36 B-Natriuretic Peptide 33.3 pg/mL (0-79) 01/04/21 13:36 Total Protein 7.1 g/dL (6.4-8.2) 01/06/21 06:02 Albumin 3.3 g/dL (3.4-5.0) L 01/06/21 06:02 Globulin 3.8 g/dL (2.5-4.5) 01/06/21 06:02 Albumin/Globulin Ratio 0.9 Ratio (1.1-2.1) L 01/06/21 06:02 Specimen Type Clean catch urine 01/05/21 17:19 Urine Color Yellow (YELLOW) 01/05/21 17:19 Urine Appearance Clear (CLEAR) 01/05/21 17:19 Urine pH 6.0 (5.0 - 8.0) 01/05/21 17:19 Ur Specific [place] 1.025 (1.000-1.030) 01/05/21 17:19 Urine Protein 2+ (NEGATIVE) 01/05/21 17:19 Urine Glucose (UA) 1+ (NEGATIVE) 01/05/21 17:19 Urine Ketones Negative (NEGATIVE) 01/05/21 17:19 Urine Occult Blood 1+ (NEGATIVE) 01/05/21 17:19 Urine Nitrite Negative (NEGATIVE) 01/05/21 17:19 Urine Bilirubin Negative (NEGATIVE) 01/05/21 17:19 Urine Urobilinogen Normal (NORMAL) 01/05/21 17:19 Ur Leukocyte Esterase Negative (NEGATIVE) 01/05/21 17:19 Urine RBC 0-2 /HPF (0-3) 01/05/21 17:19 Urine WBC 0-2 /HPF (0-5) 01/05/21 17:19 Ur Squamous Epith Cells Moderate /HPF (NEGATIVE) 01/05/21 17:19 Urine Bacteria 1+ /HPF (NEGATIVE) 01/05/21 17:19 Ur Culture Indicated? No/not indicated 01/05/21 17:19 SARS-CoV-2 (PCR) Negative (NEGATIVE) 01/04/21 13:35 Influenza Type A (PCR) Negative (NEGATIVE) 01/04/21 13:35 Influenza Type B (PCR) Negative (NEGATIVE) 01/04/21 13:35 RSV (PCR) Negative (NEGATIVE) 01/04/21 13:35 - Plan (1) COPD with acute exacerbation Status: Acute Plan: ADMIT, SUPPLEMENTAL OXYGEN, NORMAL SALINE AT 80 ML/HR, DUONEBS Q6H, PUMICORT NEBS BID, LEVAQUIN 500MG IV DAILY, SOLU-MEDROL 80MG IV Q8H, SINGULAIR 10MG PO HS, ZOLOFT 50MG PO HS, PROTONIX 40MG IV DAILY, FIORICET 2 TABS PO Q8H PRN, TESSALON PERLES 200MG PO TID, AND NORVASC 5MG PO DAILY (2) Hypertension Status: Acute Qualifiers: Hypertension type: unspecified Qualified Code(s): I10 - Essential (primary) hypertension (3) Post-COVID syndrome Status: Acute
[2021-01-06] MEDS ORDERED: FIORICET TAB PO ONE (13:16)
[2021-01-06] MEDS: FIORICET TAB PO PRN ×2 (13:31→21:00)
[2021-01-06] MEDS ORDERED: DEMEROL INJ IVP PRN (16:49)
[2021-01-06] MEDS ORDERED: ZOFRAN INJ 4 MG VIAL IVP PRN (16:51)
[2021-01-06] MEDS ORDERED: DEMEROL INJ ONE (18:07)
[2021-01-06] MEDS: SINGULAIR TAB 10 MG PO SCH (21:00)
[2021-01-06] MEDS: ZOLOFT PO SCH (22:08)
[2021-01-07] MEDS: TESSALON PERLES PO SCH ×2 (00:17→05:48)
[2021-01-07] MEDS: DUONEB 0.5 MG/3 MG (3 mL) NEB SCH ×2 (00:42→05:50)
[2021-01-07] MEDS: NS 1000 ML 1,000 ML IV SCH ×3 (05:45→10:23)
[2021-01-07] MEDS: SOLU-Medrol 40 MG VIAL IVP SCH (05:47)
--- NOTE | 2021-01-07 05:56 | RAD ---
HISTORYSOB Relevant Clinical InformationSTUDYCHEST, 1 [id number]/28/2021FINDINGSThe trachea is midline. The cardiac silhouette is mildly enlarged. The lungs are clear without focal infiltrate or effusion. Pulmonary vasculature within normal limits. No pneumothorax. The bony thorax is unremarkable.IMPRESSIONMild cardiomegaly.No active cardiopulmonary diseaseElectronically signed by: Judd Garcia (Jan 07, 2021 05:54:54)
[2021-01-07 06:38] LABS: BASOPHILS % (AUTO) 0.2 % (0.2-1.0); HEMATOCRIT 43.3 % (36.0-47.0); HEMOGLOBIN 14.9 g/dL (12.0-16.0); LYMPHOCYTES # (AUTO) 1.8 X10^3/uL (1.3-2.9); LYMPHOCYTES % (AUTO) 9.3 % (21.0-51.0); MEAN CORPUSCULAR HEMOGLOBIN 31.6 pg (27.0-34.0); MEAN CORPUSCULAR HGB CONC 34.5 g/dL (33.0-35.0); MEAN CORPUSCULAR VOLUME 91.6 fL (80.0-100.0); MEAN PLATELET VOLUME 8.8 fL (7.4-11.0); MONOCYTES # (AUTO) 1.1 x10^3/uL (0.3-0.8); MONOCYTES % (AUTO) 5.9 % (0.0-13.0); NEUTROPHILS # (AUTO) 15.9 x10^3/uL (2.2-4.8); NEUTROPHILS % (AUTO) 84.6 % (42.0-75.0); PLATELET COUNT 314 X10^3/uL (150.0-450.0); RED BLOOD COUNT 4.72 X10^6/uL (3.5-5.4); RED CELL DISTRIBUTION WIDTH 13.7 % (11.6-16.5); WHITE BLOOD COUNT 18.9 X10^3/uL (3.6-10.0)
[2021-01-07 07:08] LABS: ALANINE AMINOTRANSFERASE 20 Units/L (12-78); ALKALINE PHOSPHATASE 93 Units/L (46-116); ASPARTATE AMINO TRANSFERASE 10 Units/L (15-37); BLOOD UREA NITROGEN 15 mg/dL (7-18); CALCIUM 8.5 mg/dL (8.5-10.1); CARBON DIOXIDE 24.7 mmol/L (21-32); CHLORIDE 106 mmol/L (98-107); COR CA(FOR HYPOALB) 9.3 mg/dL (8.5-10.1); COR NA(FOR HYPERGLY) 140 mmol/L (136-145); CREATININE 0.52 mg/dL (0.55-1.02); SODIUM 139 mmol/L (136-145); TOTAL PROTEIN 6.6 g/dL (6.4-8.2); eGFR NON BLACK RACES > 60 (>60)
[2021-01-07] MEDS: NORVASC TAB 5 MG PO SCH (08:10)
[2021-01-07] MEDS: PROTONIX INJ 40 MG VIAL IVP SCH (08:10)
[2021-01-07] MEDS: LEVAQUIN PREMIX IV 500 MG 500 MG/100 ML BAG IV SCH (08:10)
[2021-01-07] MEDS: FIORICET TAB PO PRN (08:40)
[2021-01-07] MEDS: PULMICORT NEB TX 0.5 MG NEB SCH (10:04)
[2021-01-07 12:04] VITALS: BP 199/88
== END 2021-01-07 13:29 | disposition home or self-care (01) ==
LOC: ER 13:15 → U 13:15 → OBS 01-05 17:12
PROVIDERS: ADMIT Internal Medicine; ATTEND Internal Medicine
DX: J44.1 Chronic obstructive pulmonary disease with (acute) exacerbation; R06.02 Shortness of breath; Z20.822 Contact with and (suspected) exposure to COVID-19; R73.09 Other abnormal glucose; R51.9 Headache, unspecified; Z86.16 Personal history of COVID-19; I10 Essential (primary) hypertension